=== PATIENT | female | born 1980 | race Caucasian/White ===

== ENCOUNTER 2024-03-09 12:06 | Emergency (ER) | payer MEDICAID, SELFPAY ==
[2024-03-09 12:16] VITALS: BP 168/106; BP 178/104; PULSE 99; RESP 19; TEMP 37; O2SAT 99; BMI 38.4
--- NOTE | 2024-03-09 12:26 | EDNOTE_ITS ---
<Statement entered by Ayesha Reynoso MD - 03/10/24 09:16> As co-signing physician, I was present and available for consult prn. I concur with the plan and care as documented by the midlevel provider. ED General RME/HPI General Chief complaint: General Adult/Misc Complain Stated complaint: SENT BY HEALTH DEPARTMENT FOR SHOT Time Seen by Provider: 03/09/24 12:09 Arrival date/time: 03/09/24 12:06 43-year-old female presents emerged department today stating that the health department referred her to the ER for an injection of Bicillin patient tested positive for syphilis Limitations: no limitations Related Data Previous Rx's ?Medication ?Instructions ?Recorded acetaminophen 650 mg 650 mg PO Q8H PRN fever or pain 01/15/19 tablet,extended release #30 tabs ibuprofen 600 mg tablet 600 mg PO Q8H PRN fever or pain 01/15/19 #30 tabs Allergies Allergy/AdvReac Type Severity Reaction Status Date / Time No Known Allergies Allergy Verified 03/09/24 12:08 Review of Systems Review of Systems Systems Reviewed: All systems reviewed, normal except as documented Constitutional Constitutional: Reports system reviewed and no additional complaints, except as documented, Denies fever(s) and Denies headache(s) Eyes Eyes: Reports system reviewed and no additional complaints, except as documented and Denies blurry vision ENT Ears, Nose, Mouth, and Throat: Reports system reviewed and no additional complaints, except as documented, Denies headache(s), Denies nasal congestion and Denies nasal discharge Cardiovascular Cardiovascular: Reports system reviewed and no additional complaints, except as documented, Denies chest pain and Denies dyspnea Respiratory Respiratory: Reports system reviewed and no additional complaints, except as documented, Denies chest congestion, Denies cough and Denies dyspnea Gastrointestinal Gastrointestinal: Reports system reviewed and no additional complaints, except as documented and Denies abdominal pain Integumentary/Breasts Skin/Breast: Reports system reviewed and no additional complaints, except as documented and Denies rash Neurologic Neurologic: Reports system reviewed and no additional complaints, except as documented, Reports as per HPI and Denies headache(s) Past Medical History Past Medical History CARDIAC: Positive Hypertension; Negative Congestive Heart Failure RESPIRATORY: Positive Asthma; Negative Chronic Obstructive Pulmonary Disease (COPD) GENITOURINARY: Negative Renal Disease ENDOCRINE: Negative Diabetes Mellitus Type 1 or Diabetes Mellitus Type 2 Social History SMOKING STATUS: Heavy (> 1 pack/day) ED Exam General Limitations: Present no limitations General appearance: Present alert and in no apparent distress Head Head exam: Present atraumatic, normocephalic and normal inspection Eye Eye exam: Present normal appearance, PERRL and EOMI; Absent conjunctival injection ENT ENT exam: Present normal exam, normal oropharynx and mucous membranes moist Neck Neck exam: Present normal inspection, full ROM and trachea midline Chest Chest inspection: Present normal inspection and symmetric chest wall rise Respiratory Respiratory exam: Present normal lung sounds bilaterally; Absent respiratory distress, wheezes, stridor or accessory muscle use Cardiovascular Cardiovascular exam: Present regular rate, normal rhythm and normal heart sounds Abdominal Exam Abdominal exam: Present soft and normal bowel sounds Extremities Exam Extremities exam: Present normal inspection and full ROM Back Exam Back exam: Present normal inspection and full ROM Neurological Exam Neurological exam: Present alert, oriented X3 and CN II-XII intact Psychiatric Psychiatric exam: Present normal affect and normal mood Skin Skin exam: Present warm, dry, intact and normal color Course Quality Measures none Orders Category Date Time Status PEN G BANDAR (Bicillin LA) [Bicillin La Inj] Med 03/09/24 12:26 Discontinued 2.4 mmu IM X1 ONE Vital Signs Vital signs: Vital Signs Temperature 98.6 F 03/09/24 12:16 Pulse Rate 99 03/09/24 12:16 Respiratory Rate 19 03/09/24 12:16 Blood Pressure 178/104 H 03/09/24 12:16 Pulse Oximetry (%) 99 03/09/24 12:16 Oxygen Delivery Method Room Air 03/09/24 12:16 O2 saturation 99% on room air with normal limits MDM Patient data External records reviewed:: [facility] previous records Clinical information provided by:: patient Social determinants that could affect healthcare access:: none Patient has the following chronic illnesses:: None How is presenting disease/condition affected by chronic disease/condition?: no chronic disease Evaluation data The following diagnostics were reviewed and interpreted by me:: lab results and radiology exam(s) Lab and/or radiology exams considered but not ordered:: Labs and radiology obtained Interpretation Summary: Reviewed by me Medications Medications considered but not ordered:: Given Medication administrations:: Medication Administration History Discontinued Medications Penicillin G Benzathine (Pen G Bandar (Bicillin La) 2.4 Mmu/4 Ml Syrg) 2.4 mmu IM X1 ONE Stop: 03/09/24 12:27 Last Admin: 03/09/24 13:25 Dose: 2.4 mmu Documented By: EH Given Consultations Consultation(s) initiated? (list below): No Diagnosis Differential Diagnosis ED Complaint MDM: Syphilis, STD Most likely diagnosis given after review of the tests above:: Syphilis Admission Indicated Admission indicated?: not indicated Explain why admission is indicated or not indicated:: No criteria Admission Request Was there a request for admission?: No Disposition Plan Disposition Plan: Discharge Discharge Attestation Discharge Attestation: The patient and all family members were given an opportunity to ask questions and understood the discharge instructions. Discharge instructions specifically effects, indications for sooner follow up or return to the emergency department, and the expected course of current diagnosis. Patient condition: Stable Medical Decision Making MDM Narrative MDM Narrative: 43-year-old female presents emergency department today stating that the health department referred her to the ER for an injection of Bicillin patient tested positive for syphilis On exam patient well-appearing patient does not appear ill or toxic does not appear to be in acute distress Patient given Bicillin and discharged home Patient reports no chancre or rash Patient discharged home in no distress to follow-up with primary care doctor in the next 24 to 48 hours and for any worsening symptoms to return to the ER immediately Differential Diagnosis Differential Diagnosis: Syphilis, STD Medical Records Medical records reviewed: Yes I reviewed the patient's medical records. Discharge Plan Plan Patient Disposition: HOME (Self Care) Disposition Comment: Stable Prescriptions/Referrals Prescriptions/Med Rec: No Action acetaminophen 650 mg tablet extended release 650 mg PO Q8H PRN (Reason: fever or pain) Qty: 30 0RF Rx Instructions: swallow whole; do not crush, chew, break, dissolve, cut, or open ibuprofen 600 mg tablet 600 mg PO Q8H PRN (Reason: fever or pain) Qty: 30 0RF Rx Instructions: prn pain / fever Problem List Clinical Impression: Syphilis Patient/Caregiver Discharge Instructions Education Materials: Syphilis Additional Instructions: Please follow-up with health department as discussed for worsening symptoms or concerns return to the ER immediately for further evaluation Print Language: Italian Stand Alone Forms: Rosy Award Info., Patient Portal Info Letter PA/MERCHANDISE FLOW TEAM LEADER Supervising Physician PA/MERCHANDISE FLOW TEAM LEADER Supervising Physician: Dr. Reynoso
[2024-03-09] MEDS: PEN G BENZ (Bicillin LA) 2.4 MMU/4 ML SYRG IM (13:25)
== END 2024-03-09 13:37 | disposition home or self-care (01) ==
LOC: SERX 13:22
PROVIDERS: Emergency Provider Emergency Medicine; PCP Nurse Practitioner Family
DX: A53.9 Syphilis, unspecified (principal)
CPT/HCPCS: 96372; 99283; J0561

== ENCOUNTER 2024-03-16 15:35 | Emergency (ER) | payer MEDICAID, SELFPAY ==
--- NOTE | 2024-03-16 16:22 | PC.NURSE ---
Addendum entered by Keesha Plaza 03/16/24 17:34: called again, no answer x3 @[id number] Addendum entered by Keesha Plaza 03/16/24 17:01: called for pt again from lobby/outside, no answer@ 1705 Original Note: called for pt from lobby/outside, no answerx1@ 1613
--- NOTE | 2024-03-16 20:15 | PC.NURSE ---
NO ANSWER AT ER LOBBY OR OUTSIDE ER.
== END 2024-03-16 20:16 | disposition left against medical advice (07) ==
PROVIDERS: Emergency Provider Emergency Medicine
DX: Z53.21 Procedure and treatment not carried out due to patient leaving prior to being seen by health care provider (principal)
CPT/HCPCS: 99281